=== PATIENT | male | born 1990 | race Caucasian/White ===

== ENCOUNTER 2022-02-20 09:32 | Outpatient (REF) | payer MEDICAID, SELFPAY ==
--- NOTE | ~2022-02-20 | US_ITS ---
EXAMINATION: US ABDOMEN COMPLETE CLINICAL INFORMATION: Mildly elevated liver enzymes. COMPARISON: None TECHNIQUE: Real-time imaging of the abdominal viscera. Somewhat limited study due to intercostal views and small rib spaces. FINDINGS: PANCREAS: Head and body of the pancreas are normal. Tail not well seen ABDOMINAL AORTA: The proximal, mid, and distal segments are normal in caliber. INFERIOR VENA CAVA: Visualized portions are normal. LIVER: Liver echotexture is in increased. The liver is normal in size. The liver contour is normal. No focal hepatic lesion. There is no intrahepatic biliary duct dilatation seen. GALLBLADDER: Normal. The gallbladder is physiologically distended without evidence of stones, sludge, polyps, wall thickening or pericholecystic fluid. COMMON BILE DUCT: Normal in caliber measuring 0.25 cm in diameter. RIGHT KIDNEY: Normal. No hydronephrosis. No renal calculi or focal parenchymal lesions. The kidney measures 11.7 cm in maximum dimension. LEFT KIDNEY: Normal. No hydronephrosis. No renal calculi or focal parenchymal lesions. The kidney measures 11.2 cm in maximum dimension. SPLEEN: Normal. The spleen measures 10.4 cm in maximum dimension. FREE FLUID: None. US/US abdomen complete IMPRESSION: Echogenic liver probably representing fatty infiltration. Limited visualization of the tail of the pancreas.
== END 2022-02-20 09:33 | disposition home or self-care (01) ==
LOC: HO.US 09:32
PROVIDERS: PCP Family Medicine; Visit Provider Family Medicine
DX: R74.01 Elevation of levels of liver transaminase levels (principal)
CPT/HCPCS: 76700